=== PATIENT | male | born 1985 | race Caucasian/White ===

== ENCOUNTER 2023-04-21 10:30 | Outpatient (RCR) | payer OTHER, SELFPAY ==
--- NOTE | 2023-03-18 14:16 | HP.OTEVAL ---
Patient's Visit Information Visit Information Visit Information: KELLIE AYERS is a 37 year old M, referred to Occupational Therapy by Dr. Wander Sanchez MD, with a diagnosis of Nondisp fx head of left radius, closed fracture, contusion left elbow. Date of Evaluation: 03/16/23 Occupational Therapist: Yu Valdez, MOOSE/Haja, CHT Subjective Subjective: This 37 year old male arrives with a dx of nondisplaced closed fx head of left radius and contusion left elbow. DOI February 02, 2023 pt fell on the job and broke his elbow. Pt reports he wore sling for a week and discontinued wearing. Pt reports Dr states 5-10# weight limiting but states it lifting more than that. Pt reports working in [employer] and lifts an average of 30#. He was worked there for 14 years. Pt reports pain only picking up something heavy and with flexion and extension Pt is right hand dominant. 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 Goal:: Pt will demonstrate 90* of left UE supination by discharge. Pt will demonstrate left elbow flexion 145* of AROM by discharge. Pt will demonstrate left elbow extension to -20* of AROM by discharge. Goal:: Pt will report 0/10 pain with elbow flexion and extension by week 3. Goal:: Pt to demo overall increased indep in ADL/IADL tasks by decreased total DASH score by 12 points by discharge. Rehabilitation General Assessment: Pt seen for OT shara with a dx of left radius head fx and contusion of left elbow. Pt is 6 weeks post injury and is noncompliant with weight restrictions at this time. Pt pain, strength, and limited ROM affects his ability to perform ADL/IADL tasks. Pt will benefit form skilled OT for 2-3x week for 4-6 weeks to safely increase ROM and strength in left elbow. Therapist ed on elbow flexion/extension stretches, heat for stretches, and light strengthening for left UE adn advised to stay within the 5-10# weight restriction. Pt verbalizes understanding and agreeable to OT POC. Therapy session was directly supervised and doc. approved by Yu Valdez OTR/Haja,CHT. Rehabilitation Potential: Excellent Anticipated Interventions Anticipated Interventions: A/AAROM/PROM, Strengthening, Triggerpoint Release, Modalities, Ergonomic Education, Education re Diagnosis and Home Program Visit Plan Frequency: 2-3x /Week Duration: 4-6 Weeks TEXT: Thank you for the opportunity to evaluate your patient. For Medicare and Medicare HMO plans, please review the plan of care and approve it. It will need to be FAXED BACK to us at [phone] for Medicare purposes. Please let me know if there are questions or concerns regarding this plan of care. Physician Signature: Date:
--- NOTE | 2023-06-21 09:37 | HP.OTDCSUM_ITS ---
Discharge Summary D/C Summary: It has been my pleasure to treat KELLIE AYERS under orders from Dr. Wander Sanchez MD, for the diagnosis of Nondisp fx head of left radius, closed fracture, contusion left elbow for a total of 11 visit(s). Please see the following information for a summary of their discharge status. 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 with strengthening as needed. pt met OT goals and agree to D/C. Goals Patient Goals: Regain Strength, Decrease Pain, Return to Work, Use Hand/Wrist/Arm Normally Again and Increase ROM Goal:: Pt left UE will improve to equal strength to RUE by discharge. Goal:: Pt will demonstrate 90* of left UE supination by discharge. Pt will demonstrate left elbow flexion 145* of AROM by discharge. ( goal met) Pt will demonstrate left elbow extension to -20* of AROM by discharge. ( goal met) Goal:: Pt will report 0/10 pain with elbow flexion and extension by week 3. ( goal met) Goal:: Pt to demo overall increased indep in ADL/IADL tasks by decreased total DASH score by 12 points by discharge. Plan Plan: d/c D/C Information d/c sentence: If there are questions or concerns regarding this patient's occupational therapy, please fell free to call me at [phone]. Thank you for the referral of this patient. Sincerely, Yu Valdez, OTR/L, CHT
== END 2023-04-21 19:00 | disposition home or self-care (01) ==
LOC: OT 10:30
PROVIDERS: Referring Provider Orthopaedic Surgery Sports Medicine; Visit Provider Orthopaedic Surgery Sports Medicine
DX: S52.125D Nondisplaced fracture of head of left radius, subsequent encounter for closed fracture with routine healing (principal); S50.02XD Contusion of left elbow, subsequent encounter
CPT/HCPCS: 97035; 97110; 97140; 97166; 97530